=== PATIENT | female | born 1965 | race Caucasian/White ===

== ENCOUNTER → 2018-09-28 | Outpatient (CLI) | payer OTHER | LOC: M.RAD 09:23 | DX: Z12.31 Encounter for screening mammogram for malignant neoplasm of breast (principal) ==

== ENCOUNTER 2018-12-16 21:34 | Emergency (ER) | payer OTHER ==
[~2018-12-16] VITALS: Ht 162.6 cm; Wt 88.5 kg
[2018-12-16] MEDS ORDERED: WELLBUTRIN 100100 MG PO (21:48)
[2018-12-16] MEDS ORDERED: ATENOLOL 25MG T25 M1 PO (21:48)
[2018-12-16] MEDS ORDERED: ZYRTEC10 M5 PO (21:49)
[2018-12-16] MEDS ORDERED: MELATONIN5 M1 PO (21:49)
[2018-12-16 22:28] LABS: URINE BILIRUBIN NEGATIVE (Negative); URINE BLOOD TRACE (Negative); URINE CLARITY CLEAR; URINE COLOR YELLOW; URINE GLUCOSE-RANDOM NEGATIVE (Negative); URINE KETONES NEGATIVE (Negative); URINE LEUKOCYTES-REFLEX NEGATIVE (Negative); URINE NITRITE-REFLEX NEGATIVE (Negative); URINE PROTEIN NEGATIVE (Negative); URINE UROBILINOGEN 0.2 E.U./dl (0.2-1.0)
[2018-12-16 22:36] LABS: ABSOLUTE BASOPHILS 0.1 thou/uL (0.0-0.2); ABSOLUTE EOSINOPHILS 0.2 thou/uL (0.0-0.7); ABSOLUTE LYMPHOCYTES 2.4 thou/uL (0.8-5.3); ABSOLUTE MONOCYTES 0.6 thou/uL (0.0-1.2); ABSOLUTE NEUTROPHILS 3.4 thou/uL (1.6-8.1); BASOPHILS 1.3 %; EOSINOPHILS 3.4 %; HEMATOCRIT 40.7 % (37.0-47.0); HEMOGLOBIN 13.9 gm/dL (12.0-15.0); LYMPHOCYTES 35.8 %; MCH 32.1 pg (26.0-34.0); MCHC 34.3 g/dL (28.0-37.0); MCV 93.6 fL (80.0-100.0); MONOCYTES 9.1 %; MPV 7.6 fl. (7.2-11.1); NUCLEATED RBCS 0 /100WBC; PLATELET COUNT* 291 thou/uL (150-400); POLYS 50.4 %; RBC 4.35 mil/uL (4.20-5.00); RDW-CV 13.8 % (10.5-14.5); WBC 6.7 thou/uL (4.0-11.0)
[2018-12-16 22:45] LABS: ANION GAP 5 mmol/L (7-16); BUN 14 mg/dL (7-18); CALCIUM 8.1 mg/dL (8.5-10.1); CHLORIDE 103 mmol/L (98-107); CO2 29 mmol/L (21-32); CREATININE 0.9 mg/dL (0.6-1.3); GLUCOSE 119 mg/dL (70-99); POTASSIUM 3.9 mmol/L (3.5-5.1); SODIUM 137 mmol/L (136-145)
[2018-12-16 22:56] LABS: ALKALINE PHOSPHATASE 74 U/L (46-116); NT-PRO BRAIN NAT PEPTIDE 28 pg/mL (<300); TOTAL BILIRUBIN 0.4 mg/dL (<0.1-1.0); TOTAL PROTEIN 6.1 g/dL (6.4-8.2); TROPONIN-I LEVEL <0.06 ng/mL (<0.06)
[2018-12-16 23:38] LABS: SGOT 23 U/L (15-37); SGPT 40 U/L (30-65)
[2018-12-17] MEDS ORDERED: CLARITIN10 MG PO (01:09)
[2018-12-17] MEDS ORDERED: TUSSIONEX PENN115 ML PO (01:09)
[2018-12-17] MEDS ORDERED: NASONEX17 GM NASAL (01:09)
[2018-12-17] MEDS ORDERED: SINGULAIR 10 MG10 MG PO (01:09)
[2018-12-17 01:30] VITALS: BP 112/76
--- NOTE | 2018-12-17 11:08 | EKG ---
[place] [address] ELECTROCARDIOGRAM REPORT Name: DWAYNE PULIDO 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
== END 2018-12-17 01:33 | disposition home or self-care (01) ==
LOC: M.ERS 21:34
PROVIDERS: Emergency Medicine
DX: R05 Cough (principal); R06.02 Shortness of breath

== ENCOUNTER → 2019-04-05 | Outpatient (CLI) | payer OTHER ==
[~2019-04-05] MED LIST: ATENOLOL 25MG T25 M1 PO; CLARITIN10 MG PO; MELATONIN5 M1 PO; NASONEX17 GM NASAL; SINGULAIR 10 MG10 MG PO; TUSSIONEX PENN115 ML PO; WELLBUTRIN 100100 MG PO; ZYRTEC10 M5 PO
== END ==
LOC: M.CT 08:22
DX: R91.1 Solitary pulmonary nodule (principal)

== ENCOUNTER 2020-02-17 04:17 | Observation (INO) | payer BC ==
[~2020-02-17] VITALS: Ht 162.6 cm; Wt 93.0 kg
[2020-02-17 04:33] VITALS: BP 109/64
[2020-02-17] MEDS ORDERED: LEVO-T25 MCG PO (04:36)
[2020-02-17] MEDS ORDERED: ZYRTEC10 M5 PO (04:36)
[2020-02-17 04:59] LABS: ABSOLUTE LYMPHOCYTES 1.5 thou/uL (0.8-5.3); ABSOLUTE MONOCYTES 0.2 thou/uL (0.0-1.2); ABSOLUTE NEUTROPHILS 1.9 thou/uL (1.6-8.1); BASOPHILS 0.6 %; HEMATOCRIT 39.8 % (37.0-47.0); HEMOGLOBIN 13.9 gm/dL (12.0-15.0); LYMPHOCYTES 40.7 %; MCH 31.6 pg (26.0-34.0); MCHC 34.8 g/dL (28.0-37.0); MCV 90.6 fL (80.0-100.0); MPV 8.3 fl. (7.2-11.1); NUCLEATED RBCS 0 /100WBC; PLATELET COUNT* 174 thou/uL (150-400); POLYS 52.7 %; RBC 4.39 mil/uL (4.20-5.00); WBC 3.6 thou/uL (4.0-11.0)
[2020-02-17 05:17] LABS: ANION GAP 10 mmol/L (7-16); BUN 10 mg/dL (7-18); CALCIUM 7.5 mg/dL (8.5-10.1); CHLORIDE 103 mmol/L (98-107); CO2 24 mmol/L (21-32); CREATININE 0.8 mg/dL (0.6-1.3); GLUCOSE 107 mg/dL (70-99); POTASSIUM 3.5 mmol/L (3.5-5.1); SODIUM 137 mmol/L (136-145)
[2020-02-17 05:19] LABS: PROTIME 9.9 Seconds (9.20-11.50)
[2020-02-17 05:27] LABS: ALBUMIN 3.4 g/dL (3.4-5.0); ALKALINE PHOSPHATASE 78 U/L (46-116); MAGNESIUM 1.8 mg/dL (1.8-2.4); NT-PRO BRAIN NAT PEPTIDE 31 pg/mL (<300); SGOT 54 U/L (15-37); SGPT 69 U/L (30-65); TOTAL BILIRUBIN 0.4 mg/dL (<0.1-1.0)
[2020-02-17 07:18] VITALS: BP 102/45
[2020-02-17 07:25] VITALS: BP 117/62
[2020-02-17 07:58] LABS: URINE BILIRUBIN NEGATIVE (Negative); URINE BLOOD NEGATIVE (Negative); URINE CLARITY CLEAR; URINE COLOR YELLOW; URINE GLUCOSE-RANDOM NEGATIVE (Negative); URINE KETONES NEGATIVE (Negative); URINE LEUKOCYTES-REFLEX NEGATIVE (Negative); URINE NITRITE-REFLEX NEGATIVE (Negative); URINE PROTEIN NEGATIVE (Negative); URINE UROBILINOGEN 0.2 E.U./dl (0.2-1.0)
[2020-02-17 13:45] VITALS: BP 121/72
[2020-02-17 16:00] VITALS: BP 119/65
--- NOTE | 2020-02-17 16:49 | NUR ---
Pt lives at home with spouse, was normally independent and active. No known history of HH or SNF or any DME. SW to continue to follow to assist with safe dc planning.
--- NOTE | 2020-02-17 18:43 | NUR ---
PATIENT REC'D FROM ER PER CART. REPORT REC'D. PATIENT STATES HAD BEEN ON A CRUISE APPROX 4 WEEKS AGO. STATES AFTER THE CRUISE, SHE WENT TO [place] TO SEE HER FATHER WHO WAS ON HOSPICE. HER MOTHER IN LAW IS CURRENTLY INTUBATED FROM COVID, BROTHER IN LAW ALSO HAS COVID. PATIENT STATES HAVING COUGH AND FEVER X1 WEEK. STATES HAVING DIFF BREATHING THIS MORNING. PATIENT IS PLEASANT AND COOPERATIVE W/ ASSESS AND CARES. O2 2L/NC. NS BOLUS COMPLETED, INFUSION STARTED IN ER. IV SITE NOTED WNL. TELE NOTED SR. PATIENT CURRENTLY RESTING IN BED, DENIES NEEDS AT THIS TIME. CALL LIGHT IN REACH. ISO PRECAUTIONS MAINTAINED. ~TJRN
[2020-02-18] VITALS: BP 109/66
[2020-02-18 04:00] VITALS: BP 111/67
[2020-02-18 05:24] LABS: ABSOLUTE LYMPHOCYTES 1.7 thou/uL (0.8-5.3); ABSOLUTE MONOCYTES 0.5 thou/uL (0.0-1.2); ABSOLUTE NEUTROPHILS 2.7 thou/uL (1.6-8.1); BASOPHILS 0.6 %; EOSINOPHILS 0.4 %; HEMATOCRIT 38.5 % (37.0-47.0); LYMPHOCYTES 34.8 %; MCH 31.2 pg (26.0-34.0); MCHC 33.8 g/dL (28.0-37.0); MCV 92.5 fL (80.0-100.0); MONOCYTES 9.9 %; MPV 8.5 fl. (7.2-11.1); NUCLEATED RBCS 0 /100WBC; POLYS 54.3 %; RBC 4.16 mil/uL (4.20-5.00); WBC 4.9 thou/uL (4.0-11.0)
--- NOTE | 2020-02-18 05:30 | NUR ---
ASSUMED CARE OF PT AT 1900. PT IS ALERT AND ORIENTED. VSS. PERRLA. NO COMPLAINTS OF PAIN. STEADY GAIT. PT IS IN SINUS RYTHM ON THE TELEMETRY. PT IS RESTING COMFORTABLY IN BED. RESPIRATIONS ARE EVEN AND NONLABORED. WILL CONTINUE TO MONITOR PT.
[2020-02-18 05:36] LABS: CALCIUM 7.5 mg/dL (8.5-10.1); CREATININE 0.7 mg/dL (0.6-1.3); POTASSIUM 3.7 mmol/L (3.5-5.1); TOTAL BILIRUBIN 0.4 mg/dL (<0.1-1.0); TOTAL PROTEIN 6.3 g/dL (6.4-8.2)
[2020-02-18 06:11] LABS: PLATELET COUNT* 201 thou/uL (150-400)
[2020-02-18] MEDS ORDERED: PREDNISONE 20 M20 MG PO (07:42)
[2020-02-18] MEDS ORDERED: CEFDINIR300 MG PO (07:42)
[2020-02-18] MEDS ORDERED: AZITHROMYCIN500 MG PO (07:42)
[2020-02-18 08:00] VITALS: BP 138/71
[2020-02-18 10:22] VITALS: BP 138/71
--- NOTE | 2020-02-18 10:32 | NUR ---
ASSUMED PT CARE AT 0800, AOX4, UP AD [place] O2 SAT 90'S RA. TRACING ST ON TELE. PT DENIES PAIN. PT FOR PENDING DISCHARGE FOR REST AND EXER. AM ASSESSMENT CHARTED, MEDS GIVEN PER JAN. VSS, WILL CONTINUE TO MONITOR.
[2020-02-18 12:30] VITALS: BP 138/71
--- NOTE | 2020-02-18 12:31 | NUR ---
PT GIVEN DISCHARGE INFORMATION, CARE NOTES, AND PRESCRIPTIONS SENT OVER TO PHARMACY. IV REMOVED. FALL RISK PRECAUTIONS IN PLACE. HOURLY ROUNDING COMPLETED. PT LEFT VIA WHEELCHAIR WITH NURSING STAFF TO HOME.
--- NOTE | 2020-02-21 12:22 | EKG ---
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: : 1965 Requested By: Melanie Jarvis Order Number: [id number] MD: Toni Richards Measurements Intervals [place] Rate: 72 P: 51 VT: 131 QRS: 22 QRSD: 86 T: 30 QT: 395 QTc: 433 Interpretive Statements Sinus rhythm Baseline wander in lead(s) V1,V2 Compared to ECG 12/16/2018 21:42:03 No significant changes Electronically Signed On 02-17-2020 9:15:07 CDT by Toni Richards [email or web address] <ELECTRONICALLY SIGNED> By: Toni Richards MD, [facility] 02/17/20 0915 044 0 Toni Richards MD, [facility] /EPI
== END 2020-02-18 12:32 | disposition home or self-care (01) ==
LOC: M.ERS 04:17 → M.ORTHSURG 06:16 → M.TBA-ER 06:16 → M.ORTHSURG 06:16
PROVIDERS: Emergency Medicine; Nurse Practitioner; ADMIT Family Medicine
DX: J18.9 Pneumonia, unspecified organism (principal); B34.9 Viral infection, unspecified; R09.02 Hypoxemia